=== PATIENT | male | born 1975 | race Caucasian/White ===

== ENCOUNTER 2017-07-19 21:08 | Inpatient (IN) | payer OTHER ==
[~2017-07-19] VITALS: Ht 185.4 cm; Wt 168.0 kg
--- NOTE | ~2017-07-19 | HP ---
ADMIT: 07/19/2017 RM/LOC: 617 [facility] MR#: [id number] [address] [address] [place] [address] History and Physical SEX: M AGE: 41 : 1975 DATE OF SERVICE: ADDENDUM: You can see full dictated H and P by my PA Zbigniew Reyes. Patient is a pleasant 41-year-old male, who I had actually taken care of about 4 years ago for similar episode. At that time, I would have to look back at the records, but I do not believe he had a perforation. He just had more of acute diverticulitis. Since then, he had one other attack it sounds like back in October of this last year, but otherwise been doing pretty well. Currently, he is feeling slowly better. He still a little febrile, having a headache. White count went up a little bit but not unexpected. He is on clears. He has not had a bowel movement, I told him that is okay, we are not going to do everything to force that issue. At this point, his exam does not show any diffuse peritoneal signs. Some rebound in the left lower quadrant but it is better overall he says. Nothing else otherwise significantly changed or different from Zbigniew's H and P. The plan is bowel rest, IV antibiotics, and we will have to go from there. I did go over everything with him as far as possibilities which would include operation right away because he worsens, does not get better, develop an abscess down the road a few days that needs percutaneous drain versus gets better, gets out here, then semi electively down the road we may end up needing to do a surgical intervention. Omar Moon MD/ shirley JOB #: [id number] CC: Omar Moon, Attending Physician Omar Moon, Family Physician
--- NOTE | ~2017-07-19 | DS ---
ADMIT: 07/19/2017 RM/LOC: 617 [facility] MR#: [id number] [id number] [place], [place] [address] SIMI SANDOVAL [address] [place] [id number] Discharge Summary SEX: M AGE: 41 : 1975 ADMISSION DATE: 07/19/2017 DISCHARGE DATE: 07/23/2017 ADMITTING DIAGNOSIS: Acute diverticulitis. DISMISSAL DIAGNOSIS: Acute diverticulitis. PROCEDURES: None. HOSPITAL COURSE: The patient was seen in the Emergency Department and admitted as an inpatient with routine med surg orders. He was started on IV antibiotics and was given a morphine OPHTHALMIC TECHNICIAN APPRENTICE for pain control. Overall, the patient recovered well while in the hospital. He responded well to antibiotics and tolerated an advanced diet. He did spike a fever initially but trended down during his stay. He had normal return of his bowel function. He was weaned off his morphine OPHTHALMIC TECHNICIAN APPRENTICE and was tolerating oral pain medications. He continued to recover well and was able to discharge home on 07/23/2017. At that time his vitals were normal, fever broke, and lab work normalized. DISCHARGE INSTRUCTIONS: Follow up with Dr. Moon in the office in 10-14 days. Call on Tuesday to make an appointment. DISCHARGE MEDICATION LIST: 1. Hydrocodone 1-2 tablets Q 6 p.r.n. 2. Cipro b.i.d. x7 days. LAURA Pinto / Omar Moon MD / nasrin JOB #: [id number] CC: Omar Moon MD, Attending Physician Omar Moon MD, Family Physician
--- NOTE | 2017-07-23 06:04 | ER ---
ADMIT: 07/19/2017 RM/LOC: 617 [facility] MR#: [id number] [id number] [place], [place] [address] SIMI SANDOVAL [address] [place] [id number] Emergency Room Report SEX: M AGE: 41 : 1975 DATE: 07/19/2017 HISTORY OF PRESENT ILLNESS: A 41-year-old male presents to emergency room with cramping and fever. He has had constipation and fever in the past. PHYSICAL EXAMINATION: VITAL SIGNS: Blood pressure 163/83 with a pulse of 125, respirations 18, temp is 102, and O2 sats 96%. He has had a history of diverticulitis in the past and was admitted once for 5 days in the hospital. He has had carpal tunnel, T and A, and he is allergic to penicillin. He chews tobacco and drinks alcohol occasionally. PHYSICAL EXAMINATION: GENERAL: Alert and oriented male, very pleasant, obese, moderately anxious. HEENT: Normal inspection. NECK: Supple. RESPIRATIONS: No distress. CVS: Regular in rate and rhythm. ABDOMEN: Left lower quadrant abdominal pain. Bowel sounds are normoactive though. BACK: Normal inspection. SKIN: Good color and turgor and intact. EXTREMITIES: Well perfused. NEURO: Oriented x4. Mood and affect appropriate. LABORATORY DATA: Labs include a white count of 17.8, potassium of 3.6, glucose of 118, lactic acid of 1.6 as he was screened positive for SIRS. His CT shows moderate sigmoid diverticulosis with similar confined perforation when compared to prior study, no abscess. The patient's fever broke. He was given Tylenol 1 g, and after the blood culture, he got started on Flagyl [address] Moon contacted. The patient will be admitted under his care in his services. Orders received at 2330 hours. The patient awaiting room placement. DIAGNOSES: 1. Diverticulitis with perforation. 2. Left lower quadrant abdominal pain. 3. Fever. LAURA Corral / Holger Lee MD / shirley JOB #: [id number] CC: Omar Moon MD, Attending Physician Omar Moon MD, Family Physician
[2017-07-25] MEDS ORDERED: NORCO 5-325 TA1 EACH PO (16:40)
[2017-07-25] MEDS ORDERED: CIPRO DPS500 MG PO (16:41)
--- NOTE | 2017-08-01 12:29 | HP ---
ADMIT: 07/19/2017 RM/LOC: 617 [facility] MR#: [id number] [address] [address] SIMI SANDOVAL S [address] [place] [address] History and Physical SEX: M AGE: 41 : 1975 DATE OF SERVICE: 07/19/2017 CHIEF COMPLAINT: Abdominal pain. HISTORY OF PRESENT ILLNESS: Simi is a very pleasant, 41-year-old male, who reports a 2-day history of abdominal pain, specifically around his umbilical area and down his lower quadrants bilaterally. He describes the pain as being heavy. He first noticed that he was constipated three days ago and so he tried to increase his fiber intake, which alone lead to more abdominal pain to the point where he sought medical attention in our Emergency Department last night. At that time, he was worked up and was found to be feverish. Had a white count and diverticulitis with microperforation found on CT. Prior to his hospital stay, he did feel feverish. He denies any nausea, vomiting, diarrhea, dark or bloody stools. He has not had a bowel movement for last couple days, but has been passing flatus. PAST MEDICAL HISTORY: No significant history. PAST SURGICAL HISTORY: No prior surgeries. ALLERGIES: PENICILLIN. MEDICATIONS: No home medications. FAMILY HISTORY: Noncontributory. SOCIAL HISTORY: The patient is a tobacco and alcohol user. He chews tobacco with one can lasts him about 1 to 2 days, and has one beer about a week. REVIEW OF SYSTEMS: HEAD: The patient does report a headache currently, but denies any dizziness or lightheadedness. The rest of a comprehensive 10-point review of systems was performed and all other systems are negative. PHYSICAL EXAMINATION: GENERAL: The patient is in no acute distress. He is alert and oriented. HEENT: Head is normocephalic and atraumatic. EOMs are intact. Conjunctivae free of icterus, erythema, or pallor. Pinnae, free of deformities. Nose, midline. No tracheal deviation. NECK: Supple. SKIN: Negative for jaundice, clubbing, edema, pallor, or cyanosis. LUNGS: Normal respiratory effort. HEART: Distal pulses intact. Regular rate and rhythm. ABDOMEN: Soft, nondistended. Tender right lower quadrant and left lower quadrants. ADMIT: 07/19/2017 RM/LOC: 617 [facility] MR#: [id number] [id number] [place], [place] [address] SIMI SANDOVAL [address] [place] [address] History and Physical SEX: M AGE: 41 : 1975 NEURO: Grossly intact. LABORATORY DATA: White blood cell count 19.3. ASSESSMENT: Acute diverticulitis. PLAN: Dr. Moon has admitted the patient and has started him on IV antibiotic therapy and has given him clears. We will continue those today and check labs tomorrow morning and slowly advance his diet. The patient is in agreement with this plan. I had all his questions answered and would like to proceed. LAURA Pinto / Omar Moon MD / shirley JOB #: [id number] CC: Omar Moon, Attending Physician Omar Moon, Family Physician
== END 2017-07-23 09:24 | disposition home or self-care (01) | DRG 392 ==
LOC: ER 21:08 → 6PED 23:30
PROVIDERS: ADMIT Surgery
DX: K57.20 Diverticulitis of large intestine with perforation and abscess without bleeding (principal); F17.220 Nicotine dependence, chewing tobacco, uncomplicated; R51 Headache